=== PATIENT | female | born 1950 | race Caucasian/White ===

== ENCOUNTER 2024-07-24 08:23 | Outpatient (REF) | payer OTHER, SELFPAY ==
--- NOTE | ~2024-07-24 | CT_ITS ---
EXAMINATION: CT ABDOMEN WITHOUT AND WITH CONTRAST CLINICAL INFORMATION: Right-sided mid renal mass on ultrasound. COMPARISON: None available. TECHNIQUE: Contiguous axial thin section helical images of the abdomen were performed before and after the administration of oral contrast and 85 mL of Omnipaque 350 intravenous contrast. The data set was reformatted in the coronal and sagittal planes and reviewed on an independent workstation. This CT examination was performed using dose optimization techniques as appropriate, variously including the following: *Automated exposure control *Adjustment of mA and/or kV according to patient size (this includes techniques or standardized protocols for targeted exams where dose is matched to indication/reason for exam; i.e. extremities or head) *Use of iterative reconstruction technique DLP: 385 mGy-cm FINDINGS: LUNG BASES: The visualized lung bases are unremarkable. LIVER, GALLBLADDER, AND BILIARY TREE: The liver is normal in size, shape, and attenuation. No focal hepatic lesion or biliary ductal dilatation is present. Status post cholecystectomy. PANCREAS: Unremarkable. SPLEEN: Unremarkable. ADRENAL GLANDS: Unremarkable. KIDNEYS AND URETERS: The kidneys are normal in size, shape, and attenuation. No hydronephrosis, hydroureter, or calculi seen. Of note, in the right mid kidney anteriorly there is a 3.6 x 3.1 x 3.0 cm mass present. This demonstrates significant enhancement. On noncontrast imaging this measures 24 Hounsfield units and after IV contrast 113 Hounsfield units. The mass extends to the renal sinus. There is no evidence of venous invasion. In the left kidney, there is a cortical 1.3 cm mass present. On noncontrast imaging this is hyperattenuating and measures 46 Hounsfield units and after IV contrast increases to as high as 57 Hounsfield units which is not felt to be significant enhancement and the likely diagnosis is a hemorrhagic/proteinaceous cyst. This should be monitored on future studies. No other renal masses are seen. GASTROINTESTINAL TRACT: The visualized bowel is unremarkable. ABDOMINAL WALL: No significant hernia is appreciated. LYMPH NODES: There is no retroperitoneal lymphadenopathy. VASCULAR: Minimal calcific atherosclerotic changes are present in the aorta and iliac vessels. There is no evidence of an abdominal aortic aneurysm. OSSEOUS STRUCTURES: Degenerative changes are present throughout the visualized spine without evidence of bony metastatic disease. CT/CT abdomen wo/w IV con IMPRESSION: 1. A 3.6 cm enhancing right renal mass consistent with renal cell carcinoma. No evidence of venous invasion or metastatic disease. 2. A 1.3 cm hyperattenuating left renal mass, probably a hemorrhagic/proteinaceous cyst. This should be monitored on future studies. 3. Incidental note made of cholecystectomy and degenerative changes in the spine. Fleischner guidelines were followed. Electronically signed by: Jere Leyva MD 08/07/2024 11:07 AM EDT RP
[2024-07-24] MEDS: iohexoL 350 MG/ML 75 ML INFUS..BTL 85 ML IV (09:43)
[2024-07-29 08:19] LABS: Creatinine POC 0.9 mg/dL (0.5-1.4); GFR POC > 60
== END 2024-07-24 08:24 | disposition home or self-care (01) ==
LOC: HO.CT 08:23
PROVIDERS: PCP Internal Medicine; Visit Provider Internal Medicine
DX: N28.89 Other specified disorders of kidney and ureter (principal)
CPT/HCPCS: 74170; 82565; Q9967